=== PATIENT | female | born 1945 | race Caucasian/White ===

== ENCOUNTER → 2016-12-19 | Outpatient (CLI) | payer OTHER ==
--- NOTE | 2016-12-22 17:20 | CARD ---
APPROVED REPORT EXAM: Two-dimensional and M-mode echocardiogram with Doppler and color Doppler. Other Information Quality : GoodHR: 68bpm Rhythm : NSR INDICATION Hypertension RISK FACTORS Hypertension 2D DIMENSIONS RVDd3.3 (2.9-3.5cm)Left Atrium(2D)4.2 (1.6-4.0cm) IVSd0.7 (0.7-1.1cm)Aortic Root(2D)3.0 (2.0-3.7cm) LVDd4.8 (3.9-5.9cm)LVOT Diameter2.3 (1.8-2.4cm) PWd0.8 (0.7-1.1cm)LVDs3.1 (2.5-4.0cm) FS (%) 35.1 %SV67.8 ml LVEF(%)64.3 (>50%) Aortic Valve AoV Peak Delbert.142.2cm/sAoV VTI33.5cm AO Peak GR.8.1mmHgLVOT Peak Delbert.118.6cm/s AO Mean GR.4mmHgAVA (VMAX)3.53cm2 Mitral Valve MV E Qpcpnfjy36.0cm/sMV E Peak Gr.4mmHg MV DECEL [id number] A Wsnydelh09.8cm/s MV E Mean Gr.1mmHgE/A Ratio0.9 MV A Onmgddwt302hx Pulmonary Valve PV Peak Vyyjauag705.8cm/s Tricuspid Valve TR P. Membxbdy433so/sTR Peak Gr.31mmHg Pulmonary Vein S1 Pwwwsgur13.9cm/sD2 Bwiiljjy50.8cm/s PVa [id number] LEFT VENTRICLE The left ventricle is normal size. There is normal left ventricular wall thickness. The left ventricu lar systolic function is normal. The Ejection Fraction is 65-70%. There is normal LV segmental wall m otion. Transmitral Doppler flow pattern is Grade I-abnormal relaxation pattern. RIGHT VENTRICLE The right ventricle is normal size. There is normal right ventricular wall thickness. The right ventr icular systolic function is normal. ATRIA The left atrium is mildly dilated. The right atrium size is normal. The interatrial septum is intact with no evidence for an atrial septal defect or patent foramen ovale as noted on 2-D or Doppler imagi ng. AORTIC VALVE The aortic valve is mildly sclerotic. The aortic valve is trileaflet. Doppler and Color Flow revealed no significant aortic regurgitation. There is no significant aortic valvular stenosis. MITRAL VALVE Mitral annular calcification is mild. The mitral valve leaflets are thickened. There is no evidence o f mitral valve prolapse. There is no mitral valve stenosis. Doppler and Color Flow revealed no mitral valve regurgitation noted. TRICUSPID VALVE Doppler and Color Flow revealed mild tricuspid regurgitation. The pulmonary artery systolic pressure is estimated at 34 mmHg. There is mild pulmonary hypertension. PULMONIC VALVE The pulmonary valve is not well visualized but appears to opens well. Doppler and Color Flow revealed no pulmonic valvular regurgitation. The pulmonic valvular velocities are mildly elevated at 1.6 m/s but do not meet the criteria for stenosis by spectral Doppler. GREAT VESSELS The aortic root is normal in size. The ascending aorta is normal in size. The pulmonary artery is nor mal. The IVC is normal in size and collapses >50% with inspiration. PERICARDIAL EFFUSION There is no evidence of significant pericardial effusion. Critical Notification Critical Value: No <Conclusion> The left ventricular systolic function is normal. The Ejection Fraction is 65-70%. There is normal LV segmental wall motion. Mild tricuspid regurgitation. The pulmonary artery systolic pressure is estimated at 34 mmHg. There is no evidence of significant pericardial effusion.
--- NOTE | 2016-12-25 17:42 | RAD ---
APPROVED REPORT Bilateral Lower Extremity Venous Study for Venous Competence Patient Location: OUT-PATIENT Indications Lower Extremity Pain: Bilateral Lower Extremity Edema: Bilateral Findings The bilateral lower extremity deep veins were assessed for thrombus. Bilaterally, the common femoral, superficial femoral, proximal deep femoral, popliteal and proximal G SV reveal normal flow patterns, color doppler and compressibility. Below the knees, bilateral peronea l veins reveal normal color doppler flow and spectral waveforms. Critical Notification Critical Value: No <Conclusion> No evidence of thrombus in the bilateral lower extremity deep veins.
--- NOTE | 2016-12-25 17:47 | RAD ---
APPROVED REPORT Patient Location : OUT-PATIENT Indications Lower Extremity Pain : Bilateral Lower Extremity Edema : Bilateral Deep System Deep Venous Thrombosis present : No Deep Venous Reflux present : Bilateral Greater Saphenous Veins (GSV) Significant venous relux noted in the LEFT GSV at the following levels : Superficial Femoral Junction Accessory Veins Right Anterior Accessory Vein : Present : Yes Leftt Anterior Accessory Vein : Present : Yes Right Posterior Accessory Vein : Present : Yes Left Posterior Accessory Vein : Present : Yes Perforators Thigh Perforators Left: cm up from knee crease 45cm back from the anterior border of femur 17 diameter 1.4mm. Calf Perforators Right: cm up from medial heel 30cm back from the anterior border of tibia 16 diameter 1.2mm. Left: cm up from medial heel 13cm back from the anterior border of tibia 8 diameter .8mm. Findings The right SFJ measures approximately 8 mm and shows no evidence of reflux. The right lesser saphenous vein shows no evidence of reflux. The left GSV measures approximately 7 mm and shows a reflux time of 2.8 seconds. The left lesser saph enous vein does not reflux. Multiple left sided calf perforators are noted at 45/60 cm up and 17/20 cm back, respectively. Critical Notification Critical Value: No <Conclusion> 1. Positive for reflux in the left greater saphenous vein.
== END | disposition home or self-care (01) ==
LOC: ECHO 08:05
PROVIDERS: ATTEND Internal Medicine Cardiovascular Disease
DX: I07.1 Rheumatic tricuspid insufficiency (principal); I27.2 Other secondary pulmonary hypertension; K21.9 Gastro-esophageal reflux disease without esophagitis; I10 Essential (primary) hypertension; M79.604 Pain in right leg; M79.605 Pain in left leg; R29.898 Other symptoms and signs involving the musculoskeletal system
CPT/HCPCS: 93306; 93970

== ENCOUNTER → 2019-03-05 | Outpatient (CLI) | payer OTHER ==
[2019-02-15 08:59] VITALS: BP 149/80
[~2019-03-05] MED LIST: ASCO500T2 PO; FERR325T72 PO; FURO20TA3 PO; LISI-334 PO; MAGN400T22 PO; METO25TA4 PO; OMEP20CA10 PO; POTA20TA4 PO
--- NOTE | 2019-03-05 17:11 | RAD ---
EXAM: Right lower extremity arterial Doppler sonogram with ankle-brachial indices (PARAM). HISTORY: Nonhealing right lower extremity wounds. TECHNIQUE: Doppler sonographic evaluation of the right lower extremity arteries was performed and bilateral pressure readings were assessed. FINDINGS: There are normal triphasic waveforms within the right lower extremity arteries from the common femoral artery to the popliteal artery. There are also normal triphasic waveforms within the anterior tibial artery and dorsalis pedis artery. There are abnormal monophasic waveforms within the right posterior tibial and peroneal arteries. There is a mildly elevated peak systolic velocity within the right common femoral artery, measuring 153 cm/s. Right brachial pressure: 175 mmHg Left brachial pressure: 172 mmHg Right ankle pressure: Not compressible. Right ankle PARAM: Unable to assess. Left ankle pressure: Noncompressible. Left ankle PARAM: Unable to assess. IMPRESSION: 1. Abnormal monophasic waveforms within the right posterior tibial and peroneal arteries, suggesting hemodynamically significant proximal stenosis. There is also a mildly elevated peak systolic velocity within the right common femoral artery suggesting hemodynamically significant stenosis. No occlusion is seen. 2. Noncompressible bilateral ankle arteries, resulting in nonassessment of ankle brachial indices. This can be seen with severe calcified atherosclerotic plaque. Electronically signed by: Nadia Serna MD (03/05/2019 5:08 PM) [facility]
== END | disposition home or self-care (01) ==
LOC: US 13:50
PROVIDERS: ATTEND Emergency Medicine Undersea and Hyperbaric Medicine
DX: S81.801D Unspecified open wound, right lower leg, subsequent encounter (principal); I87.2 Venous insufficiency (chronic) (peripheral); I10 Essential (primary) hypertension; E78.5 Hyperlipidemia, unspecified; K21.9 Gastro-esophageal reflux disease without esophagitis; I25.10 Atherosclerotic heart disease of native coronary artery without angina pectoris; F41.9 Anxiety disorder, unspecified; Z88.8 Allergy status to other drugs, medicaments and biological substances; X58.XXXD Exposure to other specified factors, subsequent encounter
CPT/HCPCS: 93922; 93926

== ENCOUNTER → 2019-07-30 | Outpatient (CLI) | payer OTHER ==
[2019-02-15 08:59] VITALS: BP 149/80
[~2019-07-30] MED LIST changes: -OMEP20CA10 PO; +OMEP20CA16 PO
--- NOTE | 2019-07-30 13:51 | RAD ---
MR#: [id number] Date of Study: 07/30/2019 Ordering Physician: JENISE PADILLA, Referring Physician: JENISE PADILLA, Tech: Erica Duron, SAMINA, RVT, RTR APPROVED REPORT Patient Location : OUT-PATIENT Indications Venous Ulcers Skin Changes Findings The right greater and lesser saphenous veins have been previously ablated and are occluded. The right medial ankle has small perforators but in the area of the wound these perforators her neck to large arterial bed of vessels. Perforators are quite small for evaluation and treatment. Critical Notification Critical Value: No <Conclusion> No significant perforators available for ablation and treatment of venous ulcer. Signed by : Jenise Padilla, Electronically Approved : 07/30/2019 13:51:17
--- NOTE | 2019-07-30 13:52 | RAD ---
MR#: [id number] Date of Study: 07/30/2019 Ordering Physician: JENISE PADILLA, Referring Physician: JENISE PADILLA, Tech: Erica Duron RDMS, RVT, RTR APPROVED REPORT Right Lower Extremity Venous Study for DVT Patient Location: OUT-PATIENT Indications Stasis Disease Ulcer Findings On the right the grayscale images of the common femoral, superficial femoral and popliteal veins do n ot demonstrate any evidence of thrombus and these veins appear to be compressible. The below-knee vei ns were not well visualized but grossly appear to be compressible. Spectral imaging and color Doppler do not reveal any evidence of obstruction to flow with normal respirophasic variation above the knee . Below the knee there is spontaneous flow noted. Critical Notification Critical Value: No <Conclusion> 1. Negative for DVT in the RLE Signed by : Jenise Padilla, Electronically Approved : 07/30/2019 13:52:25
== END | disposition home or self-care (01) ==
LOC: US 07:37
PROVIDERS: ATTEND Internal Medicine Cardiovascular Disease
DX: I87.2 Venous insufficiency (chronic) (peripheral) (principal); L97.319 Non-pressure chronic ulcer of right ankle with unspecified severity
CPT/HCPCS: 93971

== ENCOUNTER 2019-10-28 20:52 | Emergency (ER) | payer OTHER ==
[~2019-10-28] VITALS: Ht 172.7 cm; Wt 77.0 kg
[~2019-10-28 20:52] MED LIST changes: -ASCO500T2 PO; +ASCO500T4 PO
--- NOTE | 2019-10-28 21:19 | PHYS DOC ---
Past Medical History Past Medical History: Hypertension Past Surgical History: Appendectomy Smoking Status: Never Smoker Alcohol Use: None Drug Use: None General Adult EDM: Chief Complaint: LOWER EXT PAIN HPI: HPI: Patient is a 74 year old female who presents with complaint of right foot and ankle pain after injuring it by what she describes as taking a tumble. Patient states that she must have twisted it. She states that pain is worsened with weightbearing. She states it is not really bad when she is just sitting and not bearing weight. She denies any head injury or other injuries. [] Review of Systems: Review of Systems: Constitutional: Denies fever or chills. [] Respiratory: Denies cough or shortness of breath. [] Cardiovascular: Denies chest pain or edema. [] Musculoskeletal: Positive left foot and ankle pain. [] Integument: Denies rash. [] Heart Score: Risk Factors: Risk Factors: DM, Current or recent (<one month) smoker, HTN, HLP, family history of CAD, obesity. Risk Scores: Score 0 - 3: 2.5% MACE over next 6 weeks - Discharge Home Score 4 - 6: 20.3% MACE over next 6 weeks - Admit for Clinical Observation Score 7 - 10: 72.7% MACE over next 6 weeks - Early Invasive Strategies Allergies: Allergies: Allergies Coded Allergies Type Severity Reaction Last Updated Verified adhesive tape Allergy Intermediate Rash 02/09/19 Yes Physical Exam: PE: Constitutional: Well developed, well nourished, no acute distress, non-toxic appearance. [] Cardiovascular: Regular rate with irregular rhythm [] Lungs & Thorax: Bilateral breath sounds clear to auscultation [] Skin: Warm, dry, no erythema, no rash. [] Extremities: Examination of left foot and ankle demonstrates tenderness palpation around the fourth and fifth metatarsals with soft tissue swelling around the bilateral malleoli. [] EKG: EKG: [] Radiology/Procedures: Radiology/Procedures: [] Impression: PROCEDURE: ANKLE RIGHT 3V FOOT RIGHT 3V, ANKLE RIGHT 3V History: Twisted. Pain. Technique: 3 views right ankle and 3 views right foot. Comparison: None. Findings: Dystrophic soft tissue calcifications. Ankle soft tissue swelling. Normal alignment of the ankle. Symmetric ankle mortise. Osteopenia. Plantar calcaneal spur. Irregularity of the fourth proximal phalanx. Impression: 1. Irregularity of the fourth proximal phalanx, may represent age-indeterminate fracture. Recommend correlation for point tenderness. 2. Ankle soft tissue swelling. 3. Osteopenia. Electronically signed by: Ross Wolff DO (10/28/2019 10:12 PM) [facility] Course & Med Decision Making: Course & Med Decision Making Pertinent Labs and Imaging studies reviewed. (See chart for details) [] Dragon Disclaimer: Dragon Disclaimer: This electronic medical record was generated, in whole or in part, using a voice recognition dictation system. Departure Departure Impression: Primary Impression: Sprain of foot, left Qualified Codes: S93.602A - Unspecified sprain of left foot, initial encounter Additional Impression: Left ankle sprain Qualified Codes: S93.402A - Sprain of unspecified ligament of left ankle, initial encounter Disposition: HOME, SELF-CARE Condition: STABLE Referrals: JOHANA MITCHELL MD (PCP) Patient Instructions: Ankle Sprain, Foot Sprain Scripts Tramadol Hcl (TRAMADOL HCL) 50 Mg Tablet 50 MG PO Q6HRS PRN for PAIN, #12 TAB Prov: LATOYA ESPINO Jr., DO 10/28/19 LATOYA ESPINO Jr., DO October 28, 2019 21:19
--- NOTE | 2019-10-28 22:15 | RAD ---
FOOT RIGHT 3V, ANKLE RIGHT 3V History: Twisted. Pain. Technique: 3 views right ankle and 3 views right foot. Comparison: None. Findings: Dystrophic soft tissue calcifications. Ankle soft tissue swelling. Normal alignment of the ankle. Symmetric ankle mortise. Osteopenia. Plantar calcaneal spur. Irregularity of the fourth proximal phalanx. Impression: 1. Irregularity of the fourth proximal phalanx, may represent age-indeterminate fracture. Recommend correlation for point tenderness. 2. Ankle soft tissue swelling. 3. Osteopenia. Electronically signed by: Ross Wolff DO (10/28/2019 10:12 PM) [facility]
--- NOTE | 2019-10-28 22:15 | RAD ---
FOOT RIGHT 3V, ANKLE RIGHT 3V History: Twisted. Pain. Technique: 3 views right ankle and 3 views right foot. Comparison: None. Findings: Dystrophic soft tissue calcifications. Ankle soft tissue swelling. Normal alignment of the ankle. Symmetric ankle mortise. Osteopenia. Plantar calcaneal spur. Irregularity of the fourth proximal phalanx. Impression: 1. Irregularity of the fourth proximal phalanx, may represent age-indeterminate fracture. Recommend correlation for point tenderness. 2. Ankle soft tissue swelling. 3. Osteopenia. Electronically signed by: Ross Wolff DO (10/28/2019 10:12 PM) [facility]
[2019-10-28] MEDS ORDERED: TRAM50TA PO (22:24)
[2019-10-28 22:28] VITALS: BP 220/87
== END 2019-10-28 22:28 | disposition home or self-care (01) ==
LOC: ER 20:52
DX: S93.401A Sprain of unspecified ligament of right ankle, initial encounter (principal); S93.601A Unspecified sprain of right foot, initial encounter; I10 Essential (primary) hypertension; M85.871 Other specified disorders of bone density and structure, right ankle and foot; Z88.8 Allergy status to other drugs, medicaments and biological substances; X50.9XXA Other and unspecified overexertion or strenuous movements or postures, initial encounter; Y93.89 Activity, other specified; Y92.89 Other specified places as the place of occurrence of the external cause; Y99.8 Other external cause status
CPT/HCPCS: 29515; 73610; 73630; 99284

== ENCOUNTER → 2020-09-25 | Outpatient (CLI) | payer MEDICARE ==
[~2020-09-25] MED LIST changes: -LISI-334 PO; +LISI20TA18 PO; +TRAM50TA PO
--- NOTE | 2020-09-25 16:45 | RAD ---
MR#: [id number] Date of Study: 09/25/2020 Ordering Physician: JENISE PADILLA, Referring Physician: JENISE PADILLA, Tech: Nirav Cancino MBA, RDMS, RVT, RDCS, RTR APPROVED REPORT Patient Location: OUT-PATIENT Indications PAD Findings Right arm 160, left arm 160 Right ankle 185, left ankle 183 Right PARAM 1.2, left PARAM 1.1 Critical Notification Critical Value: No <Conclusion> 1. Normal bilateral PARAM. Signed by : Jenise Padilla, Electronically Approved : 09/25/2020 16:45:19
--- NOTE | 2020-09-25 16:47 | RAD ---
MR#: [id number] Date of Study: 09/25/2020 Ordering Physician: JENISE PADILLA, Referring Physician: JENISE PADILLA, Tech: Nirav Cancino MBA, RDMS, RVT, RDCS, RTR APPROVED REPORT Patient Location: OUT-PATIENT Indications PAD VELOCITY AND DOPPLER WAVEFORM ANALYSIS RIGHT cm/secWaveformSeverity LEFT cm/secWaveform Severity dCFA 116.0BiphasicdCFA 152.0Biphasic Prof Fem Art. 77.0BiphasicProf Fem Art. 89.0Biphasic Fem Art Prox. 146.0BiphasicFem Art Prox. 114.0Biphasic Fem Art Mid. 124.0BiphasicFem Art Mid. 83.0Biphasic Fem Art Dist. 107.0TriphasicFem Art Dist. 75.0Biphasic Pop Art(Fossa) 85.0TriphasicPop Art(AK) 83.0Biphasic DINING ROOM SUPERVISOR Prox. 98.0TriphasicPTA Prox. 81.0Biphasic DINING ROOM SUPERVISOR Dist. 81.0TriphasicPTA Dist. 103.0Biphasic Per Art Mid. 74.0TriphasicPer Art Mid. 82.0Biphasic MARIA INES Prox. 116.0TriphasicATA Prox. 72.0Biphasic DPA 150MonophasicDPA 100Biphasic Findings Grayscale images of the lower extremity arterial vessels demonstrates minimal diffuse atherosclerosis and intimal hyperplasia. There are mostly biphasic waveforms throughout the bilateral lower extremi ties with three-vessel runoff bilaterally. No significant obstructive disease is noted. Critical Notification Critical Value: No <Conclusion> 1. No significant lower extremity arterial disease bilaterally Signed by : Jenise Padilla, Electronically Approved : 09/25/2020 16:47:16
--- NOTE | 2020-09-25 16:49 | CARD ---
MR#: [id number] Date of Study: 09/25/2020 Ordering Physician: JENISE PADILLA, Referring Physician: JENISE PADILLA, Tech: Soni Lim [facility] APPROVED REPORT EXAM: Two-dimensional and M-mode echocardiogram with Doppler and color Doppler. Other Information Quality : AverageHR: 58bpm Rhythm : NSR INDICATION Hypertension/HCVD 2D DIMENSIONS Left Atrium(2D)4.1 (1.6-4.0cm)IVSd1.3 (0.7-1.1cm) Aortic Root(2D)3.2 (2.0-3.7cm)LVDd4.3 (3.9-5.9cm) LVOT Diameter2.1 (1.8-2.4cm)PWd1.1 (0.7-1.1cm) LVDs2.4 (2.5-4.0cm)FS (%) 44.9 % SV64.0 mlLVEF(%)76.4 (>50%) Aortic Valve AoV Peak Delbert.131.8cm/sAoV VTI33.6cm AO Peak GR.7.0mmHgLVOT Peak Delbert.114.7cm/s AO Mean GR.4mmHgAVA (VMAX)2.99cm2 Mitral Valve MV E Lesauill54.0cm/sMV DECEL AOTP191mg MV A Xxtfmgpq94.3cm/sE/A Ratio0.8 Pulmonary Valve PV Peak Oqtxdsdx800.3cm/s Tricuspid Valve TR P. Dupvuewc945fj/sTR Peak Gr.30mmHg LEFT VENTRICLE The left ventricle is normal size. There is mild concentric left ventricular hypertrophy. The left ve ntricular systolic function is normal and the ejection fraction is within normal range. Estimated eje ction fraction 60-65%. There is normal LV segmental wall motion. Transmitral Doppler flow pattern is Grade I-abnormal relaxation pattern. RIGHT VENTRICLE The right ventricle is normal size. There is normal right ventricular wall thickness. The right ventr icular systolic function is normal. ATRIA The left atrium size is normal. The right atrium size is normal. The interatrial septum is intact wit h no evidence for an atrial septal defect or patent foramen ovale as noted on 2-D or Doppler imaging. AORTIC VALVE The aortic valve is normal in structure and function. Doppler and Color Flow revealed no significant aortic regurgitation. There is no significant aortic valvular stenosis. MITRAL VALVE The mitral valve is normal in structure and function. There is no evidence of mitral valve prolapse. There is no mitral valve stenosis. Doppler and Color-flow revealed trace mitral regurgitation. TRICUSPID VALVE The tricuspid valve is normal in structure and function. Doppler and Color Flow revealed trace tricus pid regurgitation. Estimated PAP 23 mmHg. There is no tricuspid valve stenosis. PULMONIC VALVE Doppler and Color Flow revealed no pulmonic valvular regurgitation. There is no pulmonic valvular nathaniel nosis. GREAT VESSELS The aortic root is normal in size. The ascending aorta is normal in size. The IVC is normal in size a nd collapses >50% with inspiration. PERICARDIAL EFFUSION There is no evidence of significant pericardial effusion. Critical Notification Critical Value: No <Conclusion> The left ventricular systolic function is normal and the ejection fraction is within normal range. E stimated ejection fraction 60-65%. There is normal LV segmental wall motion. Signed by : Jenise Padilla, Electronically Approved : 09/25/2020 16:48:51
== END ==
LOC: ECHO 12:56
PROVIDERS: ATTEND Internal Medicine Cardiovascular Disease
DX: I70.203 Unspecified atherosclerosis of native arteries of extremities, bilateral legs (principal); I10 Essential (primary) hypertension
CPT/HCPCS: 93306; 93922; 93925

== ENCOUNTER → 2021-10-26 | Outpatient (CLI) | payer MEDICARE ==
[~2021-10-26] MED LIST changes: +POTA-121 PO; -POTA20TA4 PO
--- NOTE | 2021-10-26 16:10 | RAD ---
MR#: [id number] Date of Study: 10/26/2021 Ordering Physician: JENISE PADILLA, Referring Physician: JENISE PADILLA, Tech: Nirav Cancino MBA, RDMS, RVT, RDCS, RTR APPROVED REPORT Patient Location : OUT-PATIENT Indications VENOUS INSUFFICIENCY Findings Grayscale images, spectral waveform and color duplex analysis of superficial veins bilateral lower ex tremities showed previously successfully ablated bilateral greater and lesser saphenous veins without any residual reflux. No perforators were visualized. Critical Notification Critical Value: No <Conclusion> Bilateral lower extremity venous reflux study showed successfully ablated greater and lesser saphenou s veins without any residual reflux. Signed by : Nate Johnson, Electronically Approved : 10/26/2021 16:09:47
== END ==
LOC: US 12:04
PROVIDERS: ATTEND Internal Medicine Cardiovascular Disease
DX: I87.2 Venous insufficiency (chronic) (peripheral) (principal)
CPT/HCPCS: 93970